=== PATIENT | male | born 1955 ===

== ENCOUNTER 2018-01-28 10:13 | Emergency (ER) | payer MEDICAID ==
[2018-01-28 10:22] VITALS: BMI 21.1
[2018-01-28] MEDS ORDERED: Lidocaine/Epi 1% 1:100000 20 ML IJ ONE (10:23)
[2018-01-28] MEDS ORDERED: Lidocaine 1% w Epi 1:100,000 Inj ONE (10:25)
--- NOTE | 2018-01-28 10:30 | ED PDOC ---
HPI: Head Injury Time Seen by Provider: 01/28/18 10:18 Chief Complaint (Provider): Head injury History Per: Patient History/Exam Limitations: no limitations Onset/Duration Of Symptoms: Hrs (this morning) Additional Complaint(s): 62 year old male presents to the ED complaining of head injury after hitting his head against a mounted TV at 0800 this morning. Patient sustained laceration to his scalp. Patient is complaining of a headache but denies LOC and dizziness. PMD: none Past Medical History Reviewed: Historical Data, Nursing Documentation, Vital Signs Vital Signs: Last Vital Signs Temp 98 F 01/28/18 10:20 Pulse 85 01/28/18 10:20 Resp 24 01/28/18 10:20 BP 141/81 01/28/18 10:20 Pulse Ox 98 01/28/18 10:20 - Medical History PMH: No Chronic Diseases - Surgical History Surgical History: No Surg Hx - Family History Family History: States: Unknown Family Hx - Allergies Allergies/Adverse Reactions: Allergies Allergy/AdvReac Type Severity Reaction Status Date / Time No Known Allergies Allergy Verified 01/28/18 10:27 Review of Systems ROS Statement: Except As Marked, All Systems Reviewed And Found Negative Skin: Positive for: Other (Laceration to scalp) Neurological: Positive for: Headache. Negative for: Dizziness, Other (LOC) Physical Exam - Reviewed Nursing Documentation Reviewed: Yes Vital Signs Reviewed: Yes - Physical Exam Appears: Positive for: Non-toxic, No Acute Distress Head Exam: Positive for: ATRAUMATIC, NORMOCEPHALIC. Negative for: NORMAL INSPECTION (2 lacerations: 1st laceration to left temporal area, 3cm laceration with no palpable fracture; 2nd laceration to occipital area, 2cm laceration with no palpable fracture.) Skin: Positive for: Normal Color, Warm, Dry Eye Exam: Positive for: Normal appearance, EOMI, PERRL Neck: Positive for: Normal, Painless ROM Extremity: Positive for: Normal ROM Neurologic/Psych: Positive for: Alert, Oriented. Negative for: Motor/Sensory Deficits (focal deficits) - ECG O2 Sat by Pulse Oximetry: 98 (RA) Pulse Ox Interpretation: Normal Medical Decision Making Medical Decision Making: Initial Impression: Head injury Initial Plan: --CT head --Lidocaine 3mL IJ Scribe Attestation: Documented by Esvin Trimble acting as a scribe for Rigoberto Clinton MD. Provider Scribe Attestation: All medical record entries made by the Scribe were at my direction and personally dictated by me. I have reviewed the chart and agree that the record accurately reflects my personal performance of the history, physical exam, medical decision making, and the department course for this patient. I have also personally directed, reviewed, and agree with the discharge instructions and disposition. Procedures - Laceration/Wound Repair Left Head Wound Length (cm): 2 Wound's Depth, Shape: linear Anesthesia: Lidocaine w/ Epi Volume Anesthetic (ccs): 3 Wound Repaired With: [place] (9) Wound Complexity: Simple Left Face Wound Length (cm): 3 Wound's Depth, Shape: linear Anesthesia: Lidocaine w/ Epi Volume Anesthetic (ccs): 3 Wound Repaired With: [place] (8) Wound Complexity: Simple Disposition - Clinical Impression Clinical Impression: Head injury, Laceration - Patient ED Disposition Is Patient to be Admitted: No Counseled Patient/Family Regarding: Studies Performed, Diagnosis, Need For Followup - Disposition Referrals: [facility] [Outside] Disposition: Routine/Home Disposition Time: 11:39 Condition: FAIR Instructions: Closed Head Injury, Laceration Repair With [place] (DC) Print Language: TURKMEN
--- NOTE | 2018-01-28 10:38 | ED PDOC ---
HPI: General Adult Time Seen by Provider: 01/28/18 10:18 Past Medical History Vital Signs: Last Vital Signs Temp 98 F 01/28/18 10:20 Pulse 85 01/28/18 10:20 Resp 24 01/28/18 10:20 BP 141/81 01/28/18 10:20 Pulse Ox 98 01/28/18 10:20 - Allergies Allergies/Adverse Reactions: Allergies Allergy/AdvReac Type Severity Reaction Status Date / Time Unobtainable Allergy Verified 01/28/18 10:23 - ECG O2 Sat by Pulse Oximetry: 98
--- NOTE | 2018-01-28 11:32 | CT ---
Date of service: 01/28/2018 PROCEDURE: CT HEAD WITHOUT CONTRAST. HISTORY: Head injury. Rule out bleed. COMPARISON: None available. TECHNIQUE: Axial computed tomography images were obtained through the head/brain without intravenous contrast. Radiation dose: Total exam DLP = 904.82 mGy-cm. This CT exam was performed using one or more of the following dose reduction techniques: Automated exposure control, adjustment of the mA and/or kV according to patient size, and/or use of iterative reconstruction technique. FINDINGS: HEMORRHAGE: No acute parenchymal, subarachnoid or extra-axial the hemorrhage. BRAIN: No evidence of large acute infarct. There minor chronic periventricular white matter ischemic changes most conspicuous in the perifrontal horn regions. . . VENTRICLES: No obstructive the hydrocephalus. CALVARIUM: No acute calvarial fractures. There are skin closure rody seen in 2 locations superior margins of the left anterior and posterior parietal regions near the vertex with mild underlying scalp swelling. . PARANASAL SINUSES: Unremarkable as visualized. No significant inflammatory changes. MASTOID AIR CELLS: Unremarkable as visualized. No inflammatory changes. OTHER FINDINGS: None. IMPRESSION: No acute intracranial hemorrhage. Minor chronic periventricular white matter ischemic changes most conspicuous in the perifrontal horn regions. . . Status post reduction 2 scalp lacerations in the anterior and posterior margins of the superior parietal scalp near vertex. The the
[2018-01-28 11:46] VITALS: BP 128/80; PULSE 105; RESP 18; TEMP 99.3; O2SAT 96
== END 2018-01-28 11:48 | disposition home or self-care (01) ==
LOC: H.ER 10:13
DX: S01.01XA Laceration without foreign body of scalp, initial encounter (principal); W22.09XA Striking against other stationary object, initial encounter